=== PATIENT | male | born 1995 | race Caucasian/White ===

== ENCOUNTER → 2017-09-25 10:20 | Outpatient (CLI) | payer OTHER, SELFPAY ==
--- NOTE | 2017-09-25 10:23 | DI.US.S_ITS ---
PROCEDURE: US SCROTUM INDICATIONS: LEFT TESTICULAR MASS TECHNIQUE: Real-time scanning was performed of the scrotum and testicles, with image documentation. Color and pulse Doppler interrogation was performed of both testicles. COMPARISON: None. FINDINGS: Right: Testicle is normal in size at 3.8 x 2 x 2.5 cm, and homogenous in echotexture. Epididymis is normal in overall size and morphology. There is a moderately sized right-sided hydrocele seen, with areas of loculation. No varicoceles. Overlying scrotal skin is normal in thickness. Left: Testicle is normal in size at 4.3 x 2.2 x 2.6 cm, and homogeneous in echotexture. Epididymis is normal in overall size. It demonstrates a 4 x 7 x 9 mm complex cystic structure without vascularity. This may be related to an epididymal head cyst. This corresponds to the clinically palpable lump. No hydrocele or varicoceles. Overlying scrotal skin is normal in thickness. Doppler: Color and pulse Doppler demonstrate normal and symmetric arterial flow in both testicles. IMPRESSION: The clinically palpable lump corresponds to a 9 mm apparent left epididymal cyst. Moderate, partially loculated right-sided hydrocele. Dictated by: Theo Fuller M.D. on 09/25/2017 at 11:46 Approved by: Theo Fuller M.D. on 09/25/2017 at 11:48
== END ==
PROVIDERS: Visit Provider Internal Medicine
DX: N50.3 Cyst of epididymis (principal); N43.3 Hydrocele, unspecified
CPT/HCPCS: 76870